=== PATIENT | female | born 1995 | race Two or more races ===

== ENCOUNTER 2021-03-01 08:00 | Outpatient (CLI) | payer OTHER | END 2021-03-01 23:59 | disposition home or self-care (01) | LOC: LAB.S 08:00 | PROVIDERS: ATTEND Physician Assistant Medical | DX: O99.891 Other specified diseases and conditions complicating pregnancy (principal); R10.9 Unspecified abdominal pain | CPT/HCPCS: 87086 ==

== ENCOUNTER 2021-03-02 19:52 | Outpatient (CLI) | payer OTHER ==
--- NOTE | 2021-03-02 21:29 | Ultrasound Report ---
PROCEDURE: OB First Trimester w/TV INDICATIONS: ABD PAIN OUTSIDE/PRIOR DATING DATA: Last menstrual period (LMP): 01/20/2021. LMP-based estimated date of delivery (NAYELI): 10/27/2021. First dating scan (date and location): 03/02/2021 at [facility]. Estimated date of delivery (NAYELI) from first dating scan: 10/24/2021. The below data below was generated using the ultrasound NAYELI of 11/13/2021 TECHNIQUE: Real-time scanning was performed of the fetus and maternal pelvic organs, with image documentation. Endovaginal scanning was also performed to better visualize the fetus and maternal ovaries. COMPARISON: None. FINDINGS: There is an IUP. Embryo: 0.56 cm corresponding to ultrasound NAYELI 6 weeks 2 days. A 2.1 x 2.7 x 1.0 cm periestational b leed is noted. Heart rate: Present with heart rate 107 bpm Measurement variability in dating: +/- 4 weeks by LMP, +/- 7 days by mean sac diameter (use before 6 weeks gestation if crown-rump length not able to be measured), +/- 5 days by crown-rump length (6-12 weeks gestation). Maternal organs: Ovaries grossly normal. There is a corpus luteal cyst in the right ovary.. IMPRESSION: 1. A single living IUP with the estimated gestational age 6 weeks 2 days corresponding to ultrasound NAYELI 11/13/2021. 2. There is a 2.1 x 2.7 x 1.0 cm periestational bleed. Reviewed by: Roderick Fallon MD on 03/02/2021 9:28 PM PST Approved by: Roderick Fallon MD on 03/02/2021 9:28 PM PST Station ID: [id number]
== END 2021-03-02 19:53 | disposition home or self-care (01) ==
LOC: DI 19:52
PROVIDERS: ATTEND Physician Assistant Medical
DX: O20.8 Other hemorrhage in early pregnancy (principal); Z3A.01 Less than 8 weeks gestation of pregnancy

== ENCOUNTER 2021-03-29 19:25 | Outpatient (CLI) | payer OTHER ==
[2021-03-29 20:05] LABS: BASOPHILS % (AUTO) 0.4 %; EOSINOPHILS # (AUTO) 0.1 10^3/uL (0.0-0.7); EOSINOPHILS % (AUTO) 0.8 %; HGB - HEMOGLOBIN 11.7 g/dL (12.0-16.0); LYMPHOCYTES # (AUTO) 1.6 10^3/uL (1.5-3.5); LYMPHOCYTES % (AUTO) 16.8 %; MEAN CORPUSCULAR HEMOGLOBIN 31.5 pg (27.0-31.0); MEAN CORPUSCULAR HGB CONC 34.4 g/dL (32.0-36.0); MEAN CORPUSCULAR VOLUME 91.6 fL (81.0-99.0); MEAN PLATELET VOLUME 9.9 fL (7.9-10.8); MONOCYTES # (AUTO) 0.5 10^3/uL (0.0-1.0); MONOCYTES % (AUTO) 5.2 %; NEUTROPHILS # (AUTO) 7.2 10^3/uL (1.5-6.6); NEUTROPHILS % (AUTO) 76.6 %; PLT - PLATELET COUNT 243 10^3/uL (130-450); RED BLOOD COUNT 3.71 10^6/uL (4.20-5.40); RED CELL DISTRIBUTION WIDTH 11.2 % (12.0-15.0); WHITE BLOOD COUNT 9.4 x10^3/uL (4.8-10.8)
[2021-03-29 20:49] LABS: BILIRUBIN,URINE NEGATIVE (NEGATIVE); GLUCOSE, URINE (UA) NEGATIVE (NEGATIVE); KETONES,URINE (UA) NEGATIVE (NEGATIVE); LEUKOCYTE ESTERASE, URINE NEGATIVE (NEGATIVE); NITRITE,URINE NEGATIVE (NEGATIVE); OCCULT BLOOD,URINE NEGATIVE (NEGATIVE); PROTEIN,URINE NEGATIVE (NEGATIVE); UROBILINOGEN,URINE 0.2 (NORMAL) E.U./dL (NORMAL)
[2021-03-29 21:13] LABS: BACTERIA,URINE Rare /HPF (None Seen); CLARITY,URINE CLEAR (CLEAR); RBC,URINE 0-5 /HPF (0-5); SQUAMOUS EPITHELIAL CELL,UR FEW Squamous (<= Few); WBC,URINE 0-3 /HPF (0-5)
[2021-03-31 09:51] LABS: HEPATITIS C ANTIBODY NON-REACTIVE (NON-REACTIVE)
[2021-03-31 09:52] LABS: HEPATITIS B SURFACE ANTIGEN NON-REACTIVE (NON-REACTIVE)
[2021-03-31 15:20] LABS: HIV AG/AB 4TH GEN NON-REACTIVE (NON-REACTIVE)
== END 2021-03-29 19:26 | disposition home or self-care (01) ==
LOC: LAB 19:25
PROVIDERS: ATTEND Obstetrics & Gynecology
DX: Z34.00 Encounter for supervision of normal first pregnancy, unspecified trimester (principal); Z36.89 Encounter for other specified antenatal screening
CPT/HCPCS: 36415; 81001; 85025; 86592; 86762; 86787; 86803; 86850; 86900; 86901; 87086; 87340; 87389

== ENCOUNTER 2021-04-06 16:20 | Outpatient (CLI) | payer OTHER ==
[2021-04-06 19:56] LABS: % IRON SATURATION 23 % (20-50); IRON 77 ug/dL (28-170); TOTAL IRON BINDING CAPACITY 330 ug/dL (250-450); TRANSFERRIN 236 mg/dL (192-382)
== END 2021-04-06 16:21 | disposition home or self-care (01) ==
LOC: LAB 16:20
PROVIDERS: ATTEND Obstetrics & Gynecology
DX: O99.019 Anemia complicating pregnancy, unspecified trimester (principal); D64.9 Anemia, unspecified
CPT/HCPCS: 36415; 81599; 82728; 83020; 83540; 84466; 85014; 85018; 85041

== ENCOUNTER 2021-04-20 12:42 | Outpatient (CLI) | payer OTHER | END 2021-04-20 12:43 | disposition home or self-care (01) | LOC: LAB 12:42 | PROVIDERS: ATTEND Obstetrics & Gynecology | DX: Z34.90 Encounter for supervision of normal pregnancy, unspecified, unspecified trimester (principal) | CPT/HCPCS: 36415 ==

== ENCOUNTER 2021-05-05 14:06 | Outpatient (CLI) | payer OTHER | END 2021-05-05 14:07 | disposition home or self-care (01) | LOC: LAB 14:06 | PROVIDERS: ATTEND Obstetrics & Gynecology | DX: Z34.90 Encounter for supervision of normal pregnancy, unspecified, unspecified trimester (principal) | CPT/HCPCS: 81220; 81243; 81329; 81599 ==

== ENCOUNTER 2021-06-07 12:46 | Outpatient (CLI) | payer OTHER ==
--- NOTE | 2021-06-07 16:34 | Ultrasound Report ---
PROCEDURE: OB Detailed Eval INDICATIONS: SUPERVISION OF NORMAL OUTSIDE/PRIOR DATING DATA: Last menstrual period (LMP): January 20, 2021. LMP-based estimated date of delivery (NAYELI): October 27, 2021. First dating scan (date ): March 02, 2021. Estimated date of delivery (NAYELI) from first dating scan: October 24, 2021. TECHNIQUE: Real-time scanning was performed of the fetus, with image documentation and biometric measurements. COMPARISON: Prior studies dating back to March 02, 2021. FINDINGS: General: A single living intrauterine gestation is present. Presentation: Transverse Placenta: Placental position is anterior, without previa. Amniotic fluid index: 11.7 cm, appropriate for gestational age. heart rate: 16 beats per minute. Maternal cervical canal: 4.9 cm long; normal length is 2.5 cm or more. biometrics: Biparietal diameter: 4.7 cm Head circumference: 17.1 cm Abdominal circumference: 14.6 cm Femur length: 3 cm Estimated gestational age from initial scan: not applicable. Composite gestational age from present scan: 19 weeks, 5 days Estimated weight and percentile: 303 g +/- 45 g; 19.6% Measurement variability in biometric dating: +/- 10 days from 12-20 weeks gestation, +/- 2 weeks from 20-30 weeks gestation, +/- 3 weeks at 30 weeks gestation or later. Anatomic survey: Neuro: Ventricles are normal at less than 10 mm. Cisterna magna is normal at 3-11 mm. Cerebellum i s normal in size and morphology. Nuchal skin fold: Normal at less than 6 mm between 14 and 20 weeks gestational age. Face: Nose and lips, facial profile are normal. Spine: No evidence for spina bifida. Heart: 4-chambered heart is present, with normal ventricular outflow tracts. Diaphragm: Diaphragm is intact. Stomach: Left-sided stomach is present. Kidneys: No hydronephrosis. Normal is less than 5 mm in 2nd trimester, less than 7 mm in 3rd trimester. Cord: 3 vessel cord has orthotopic insertion. Bladder: Normal in size. Extremities: All 4 extremities are visualized. IMPRESSION: Live single intrauterine gestation as detailed above. Reviewed by: Negrito Byrd MD on 06/07/2021 4:33 PM PDT Approved by: Negrito Byrd MD on 06/07/2021 4:33 PM PDT Station ID: [id number]
== END 2021-06-07 12:47 | disposition home or self-care (01) ==
LOC: DI 12:46
PROVIDERS: ATTEND Nurse Practitioner Obstetrics & Gynecology
DX: Z34.92 Encounter for supervision of normal pregnancy, unspecified, second trimester (principal); Z3A.19 19 weeks gestation of pregnancy

== ENCOUNTER 2021-08-05 13:50 | Outpatient (CLI) | payer OTHER ==
[2021-08-05 15:11] LABS: HCT - HEMATOCRIT 34.3 % (37.0-47.0); HGB - HEMOGLOBIN 11.5 g/dL (12.0-16.0); MEAN CORPUSCULAR HEMOGLOBIN 32.7 pg (27.0-31.0); MEAN CORPUSCULAR HGB CONC 33.5 g/dL (32.0-36.0); MEAN CORPUSCULAR VOLUME 97.4 fL (81.0-99.0); MEAN PLATELET VOLUME 10.1 fL (7.9-10.8); RED BLOOD COUNT 3.52 10^6/uL (4.20-5.40); RED CELL DISTRIBUTION WIDTH 12.1 % (12.0-15.0); WHITE BLOOD COUNT 7.9 x10^3/uL (4.8-10.8)
== END 2021-08-05 13:51 | disposition home or self-care (01) ==
LOC: LAB 13:50
PROVIDERS: ATTEND Obstetrics & Gynecology
DX: Z36.89 Encounter for other specified antenatal screening (principal)
CPT/HCPCS: 36415; 82950; 85027

== ENCOUNTER 2021-10-01 08:00 | Outpatient (CLI) | payer OTHER | END 2021-10-01 23:59 | disposition home or self-care (01) | LOC: LAB.R 08:00 | PROVIDERS: ATTEND Nurse Practitioner | DX: Z34.90 Encounter for supervision of normal pregnancy, unspecified, unspecified trimester (principal); Z36.85 Encounter for antenatal screening for Streptococcus B | CPT/HCPCS: 87797 ==

== ENCOUNTER 2023-10-12 15:36 | Emergency (ER) | payer OTHER ==
[2023-10-12 15:58] LABS: BASOPHILS % (AUTO) 0.5 %; EOSINOPHILS # (AUTO) 0.1 10^3/uL (0.0-0.7); EOSINOPHILS % (AUTO) 1.1 %; HCT - HEMATOCRIT 41.3 % (37.0-47.0); HGB - HEMOGLOBIN 13.6 g/dL (12.0-16.0); LYMPHOCYTES # (AUTO) 2.6 10^3/uL (1.5-3.5); LYMPHOCYTES % (AUTO) 35.2 %; MEAN CORPUSCULAR HEMOGLOBIN 30.6 pg (27.0-31.0); MEAN CORPUSCULAR HGB CONC 32.9 g/dL (32.0-36.0); MEAN CORPUSCULAR VOLUME 92.8 fL (81.0-99.0); MEAN PLATELET VOLUME 9.5 fL (7.9-10.8); MONOCYTES # (AUTO) 0.6 10^3/uL (0.0-1.0); MONOCYTES % (AUTO) 7.5 %; NEUTROPHILS # (AUTO) 4.1 10^3/uL (1.5-6.6); NEUTROPHILS % (AUTO) 55.4 %; PLT - PLATELET COUNT 274 10^3/uL (130-450); RED BLOOD COUNT 4.45 10^6/uL (4.20-5.40); RED CELL DISTRIBUTION WIDTH 11.7 % (12.0-15.0); WHITE BLOOD COUNT 7.4 x10^3/uL (4.8-10.8)
--- NOTE | 2023-10-12 16:00 | ED Physician Documentation ---
PD HPI FEMALE - Stated complaint Stated Complaint: - Chief complaint Chief Complaint: Abd Pain - Additional information Additional information: 28-year-old female just found out that she is from at home test on Monday, October 06. Patient says according to her last menstrual cycle she should be about 5 weeks . She has 1 living child she is . She is her noticing abdominal cramping last night which she said was very normal for her for her first but today woke with some very scant vaginal bleeding which made her worried for possible miscarriage. No recent fevers or chills no dysuria or urinary urgency. Patient says that there is no vaginal bleeding that gets onto her panty liner she only notices it when she wipes. PD PAST MEDICAL HISTORY - Past Medical History Past Medical History: No Cardiovascular: None Respiratory: None GI: Crohn's disease - Past Surgical History Past Surgical History: Yes General: Appendectomy, Hiatal hernia repair - Allergies Allergies/Adverse Reactions: Allergies Allergy/AdvReac Type Severity Reaction Status Date / Time No Known Drug Allergies Allergy Verified 10/12/23 15:52 - Social History Does the pt smoke?: No Smoking Status: Never smoker Does the pt drink ETOH?: No Does the pt have substance abuse?: No - Immunizations Immunizations are current?: Yes - POLST Patient has POLST: No PD ED PE NORMAL - Vitals Vital signs reviewed: Yes - General General: Alert and oriented X 3, No acute distress, Well developed/nourished - HEENT HEENT: Atraumatic, PERRL - Abdomen Abdomen: Normal bowel sounds, Soft, Non tender, Non distended, No organomegaly - Derm Derm: Normal color, Warm and dry, No rash - Psych Psych: Normal mood Results - Vitals Vitals: Vital Signs - 24 hr 10/12/23 10/12/23 10/12/23 15:45 17:30 17:51 Temperature 36.9 C 36.1 C L Heart Rate 100 71 77 Respiratory 16 13 18 Rate Blood Pressure 140/83 H 115/76 139/83 H O2 Saturation 100 99 100 Oxygen O2 Source Room air - Labs Labs: Laboratory Tests 10/12/23 10/12/23 10/12/23 15:53 15:53 16:00 WBC 7.4 RBC 4.45 Hgb 13.6 Hct 41.3 MCV 92.8 MCH 30.6 MCHC 32.9 RDW 11.7 L Plt Count 274 MPV 9.5 Neut # (Auto) 4.1 Lymph # (Auto) 2.6 Beadle # (Auto) 0.6 Eos # (Auto) 0.1 Baso # (Auto) 0.0 Absolute Nucleated RBC 0.00 Nucleated RBC % 0.0 Sodium 139 Potassium 4.0 Chloride 103 Carbon Dioxide 29 Anion Gap 7.0 BUN 21 H Creatinine 0.8 Estimated GFR (MDRD) 85 L Glucose 100 Calcium 10.0 Total Bilirubin 0.4 AST 13 ALT 9 L Alkaline Phosphatase 43 Total Protein 7.7 Albumin 4.8 Globulin 2.9 Albumin/Globulin Ratio 1.7 Lipase 22 Beta HCG, Quant 79.0 Urine Color YELLOW Urine Clarity HAZY Urine pH 7.5 Ur Specific Brewster 1.015 Urine Protein NEGATIVE Urine Glucose (UA) NEGATIVE Urine Ketones NEGATIVE Urine Occult Blood LARGE H Urine Nitrite NEGATIVE Urine Bilirubin NEGATIVE Urine Urobilinogen 0.2 (NORMAL) Ur Leukocyte Esterase NEGATIVE Urine RBC 11-25 H Urine WBC 0-3 Ur Epithelial Cells FEW Transitional Ur Squamous Epith Cells MOD Squamous H Amorphous Sediment Few Urine Bacteria Few Ur Microscopic Review INDICATED Urine Culture Comments NOT INDICATED Urine HCG, Qual POSITIVE PD Medical Decision Making - ED course ED course: 28-year-old female presents emergency department for scant vaginal bleeding and recent positive hCG test at home. She said that she was having abdominal cramping last night. She further reports that she has had absolutely no abdominal cramping today. She also reports that for her first she had a lot of abdominal cramping that was found to be benign. Labs are complete for further evaluation she has no anemia no leukocytosis no electrolyte abnormalities urinalysis is unremarkable. Beta hCG quant is 79. Given that patient is just barely she is not having any abdominal pain at this point in time and her vaginal bleeding is scant I do not believe that we need to do further pursue an ultrasound for possible ectopic. Given clinical picture I have a very low suspicion for this. Patient's established with [facility] and has an appointment in 2 weeks. She was given very strict return precautions and informed of when to come back to ER especially if she starts to develop any worsening abdominal pain. All questions answered patient safe for discharge. Departure - Departure Disposition: 01 Home, Self Care Clinical Impression: Abdominal cramping affecting Instructions: Bleeding Early Preg, ED Abdominal Pain Rule Out Ectopic Comments: Your hCG today is 79 you appear to just barely be . Given that you are not having any severe abdominal cramping today and your vaginal bleeding is of minimal I believe that you are safe to discharge for now and follow-up with [facility] in couple weeks. If your pain gets any worse or if your vaginal bleeding gets any worse please come back into the emergency department for further evaluation. Forms: PCP List Discharge Date/Time: 10/12/23 17:51
[2023-10-12 16:21] LABS: BILIRUBIN,URINE NEGATIVE (NEGATIVE); GLUCOSE, URINE (UA) NEGATIVE (NEGATIVE); HCG UR QUAL POSITIVE; KETONES,URINE (UA) NEGATIVE (NEGATIVE); LEUKOCYTE ESTERASE, URINE NEGATIVE (NEGATIVE); NITRITE,URINE NEGATIVE (NEGATIVE); OCCULT BLOOD,URINE LARGE (NEGATIVE); PH,URINE 7.5 PH (5.0-7.5); PROTEIN,URINE NEGATIVE (NEGATIVE); UROBILINOGEN,URINE 0.2 (NORMAL) E.U./dL (NORMAL)
[2023-10-12 16:24] LABS: ALBUMIN 4.8 g/dL (3.2-5.5); ALBUMIN/GLOBULIN RATIO 1.7 (1.0-2.2); BILIRUBIN,TOTAL 0.4 mg/dL (0.2-1.0); CREATININE 0.8 mg/dL (0.6-1.3); TOTAL PROTEIN 7.7 g/dL (6.4-8.9)
[2023-10-12 16:27] LABS: CLARITY,URINE HAZY (CLEAR)
[2023-10-12 16:28] LABS: SQUAMOUS EPITHELIAL CELL,UR MOD Squamous (<= Few); WBC,URINE 0-3 /HPF (0-5)
[2023-10-12 16:29] LABS: AMORPHOUS SEDIMENT,UR Few /LPF; BACTERIA,URINE Few /HPF (None Seen); EPITHELIAL CELLS,UR FEW Transitional /HPF (<= Few)
[2023-10-12 17:57] VITALS: BP 139/83; O2SAT 100
== END 2023-10-12 17:51 | disposition home or self-care (01) ==
LOC: ED 15:36
DX: O26.891 Other specified pregnancy related conditions, first trimester (principal); R10.9 Unspecified abdominal pain; O99.611 Diseases of the digestive system complicating pregnancy, first trimester; K50.90 Crohn's disease, unspecified, without complications; Z3A.01 Less than 8 weeks gestation of pregnancy
CPT/HCPCS: 36415; 80053; 81001; 81003; 81025; 83690; 84702; 85025; 87086; 99283